=== PATIENT | female | born 1970 | race Two or more races ===

== ENCOUNTER 2023-01-18 07:30 | Inpatient (IN) | payer OTHER ==
[~2023-01-18] VITALS: Ht 160 cm; Wt 91.2 kg
[2023-01-22] MEDS ORDERED: COLACE100 MG PO (11:35)
[2023-01-22] MEDS ORDERED: TANDEM DUAL AC106 MG PO (11:37)
[2023-01-22] MEDS ORDERED: ASA-BUTALB-CAF1 EACH PO (11:40)
== END 2023-01-22 13:43 | disposition home or self-care (01) | DRG 743 ==
LOC: O/R 01-20 06:44 → OB/GYN 01-20 06:44 → SURH 01-20 07:00 → OB/GYN 01-20 13:39
PROVIDERS: ADMIT Obstetrics & Gynecology; ATTEND Obstetrics & Gynecology
PROC: 0UT70ZZ Resection of Bilateral Fallopian Tubes, Open Approach (ICD-10-PCS; 2023-01-20)
PROC: 0USG7ZZ Reposition Vagina, Via Natural or Artificial Opening (ICD-10-PCS; 2023-01-20)
PROC: 0UT90ZZ Resection of Uterus, Open Approach (ICD-10-PCS; principal; 2023-01-20 07:00)
DX: D25.1 Intramural leiomyoma of uterus (principal); D25.2 Subserosal leiomyoma of uterus; D25.0 Submucous leiomyoma of uterus; N72 Inflammatory disease of cervix uteri; N80.03 Adenomyosis of the uterus; N84.0 Polyp of corpus uteri; Z20.822 Contact with and (suspected) exposure to COVID-19